=== PATIENT | female | born 1940 | race Caucasian/White ===

== ENCOUNTER 2016-07-01 21:30 | Inpatient (IN) | payer MEDICARE, OTHER ==
[~2016-07-01] VITALS: Ht 162.6 cm; Wt 73.9 kg
[~2016-07-01 21:30] MED LIST: ACTOS 15MG TAB15 MG PO; ASPIRIN 81M81 MG/TA2 PO; CALCIUM 600600 M2 PO; CIPRO 500MG TA500 MG PO; CYMBALTA 60MG60 MG PO; DESYREL 50MG50 MG PO; DETROL LA4 PO; DIABETA1.25 MG PO; FERROUS SULFATE27 MG PO; GLUCOPHAGE500 MG/TAB PO; JANUVIA25 MG PO; LASIX 40MG TABL40 MG PO; LEXAPRO 10MG10 MG PO; LIPITOR 40MG TA40 MG PO; LOPID 600M600 MG/TAB PO; MACROBID 1100 MG/CAP PO; NORCO 325 MG-51 TAB PO; REGLAN 5MG T5 MG/TAB PO; SYNTHROID0.1 MG/TAB PO; WELLBUTRIN SR100 M1 PO; ZESTRIL 5MG5 MG PO
[2016-07-01] MEDS ORDERED: MYRBETR25MG PO (22:39)
[2016-07-01] MEDS ORDERED: VITAMIN D 1001000 IU PO (22:39)
[2016-07-01] MEDS ORDERED: GLUCOTROL 5M5 MG/TAB PO (22:39)
[2016-07-01 22:44] LABS: INFLUENZA B NEGATIVE
[2016-07-01 23:04] LABS: BASO % 0.4 % (0.0-2.0); GRAN # 6.2 (1.4-6.5); GRAN % 77.3 % (42.2-75.2); HEMATOCRIT 37.9 % (37.0-47.0); HEMOGLOBIN 12.5 g/dl (12.5-16.0); LYMPH # 0.5 (1.2-3.4); LYMPH % 6.8 % (20.0-51.0); MEAN CELL VOLUME 91 fl (80.0-100.0); MEAN CORPUSCULAR HEMOGLOBIN 30 pg (27.0-31.0); MEAN CORPUSCULAR HGB CONC 33 g/dl (33.0-37.0); MEAN PLATELET VOLUME 10.9 fl (7.4-10.4); MONO # 1.2 (0.1-0.6); MONO % 15.1 % (1.7-9.3); PLATELET COUNT 176 K/mm3 (130-400); RED BLOOD COUNT 4.19 M/mm3 (4.10-5.30); REDCELL DISTRIBUTION WIDTH-CV 12.6 % (11.5-14.5)
[2016-07-01 23:17] LABS: ADJUSTED CALCIUM 10.1 mg/dL (8.4-10.2); BILIRUBIN,TOTAL 0.8 mg/dL (0.0-1.0); CALCIUM 10.1 mg/dL (8.4-10.2); CREATININE, serum 1.32 mg/dL (0.52-1.25); POTASSIUM 4.6 mmol/L (3.4-5.0); TOTAL PROTEIN 7.1 gm/dL (6.4-8.2)
[2016-07-02 00:29] LABS: PH 5 (5-8); SQUAMOUS EPITHELIAL 0-2 /hpf; URINE APPEARANCE Hazy; URINE BACTERIA Rare /hpf; URINE BILIRUBIN Negative (NEGATIVE); URINE BLOOD 2+ (NEGATIVE); URINE COLOR Yellow; URINE GLUCOSE Negative (NEGATIVE); URINE KETONE Trace (NEGATIVE); URINE RBC 0-2 /hpf; URINE UROBILINOGEN Negative (NEGATIVE); URINE WBC 0-2 /hpf
[2016-07-02 01:32] VITALS: BP 150/72; PULSE 83; TEMP 99.5
[2016-07-02 05:16] VITALS: BP 107/48; PULSE 66; TEMP 98.4
[2016-07-02 07:45] VITALS: BP 130/43; PULSE 70; TEMP 98.3
[2016-07-02 08:37] LABS: BASO % 0.5 % (0.0-2.0); EOS % 0.2 % (0-4.0); GRAN % 63.9 % (42.2-75.2); LYMPH # 1.2 (1.2-3.4); LYMPH % 19.2 % (20.0-51.0); MEAN CELL VOLUME 91 fl (80.0-100.0); MEAN CORPUSCULAR HGB CONC 33 g/dl (33.0-37.0); MEAN PLATELET VOLUME 11.6 fl (7.4-10.4); MONO % 15.7 % (1.7-9.3); PLATELET COUNT 142 K/mm3 (130-400); RED BLOOD COUNT 3.83 M/mm3 (4.10-5.30); REDCELL DISTRIBUTION WIDTH-CV 12.7 % (11.5-14.5); WHITE BLOOD COUNT 6.2 K/mm3 (4.8-10.8)
[2016-07-02 08:54] LABS: HEMATOCRIT 34.9 % (37.0-47.0); HEMOGLOBIN 11.4 g/dl (12.5-16.0); MEAN CORPUSCULAR HEMOGLOBIN 30 pg (27.0-31.0)
[2016-07-02 09:16] LABS: CREATININE, serum 1.37 mg/dL (0.52-1.25); POTASSIUM 3.8 mmol/L (3.4-5.0)
[2016-07-02 11:41] VITALS: BP 116/50; PULSE 83; TEMP 98.9
[2016-07-02 16:53] VITALS: BP 135/56; PULSE 94; TEMP 98
[2016-07-02 20:12] VITALS: BP 147/88; PULSE 81; TEMP 98.9
[2016-07-03] VITALS (7 sets, daily range): BP systolic 103–133; BP diastolic 39–69; PULSE 64–91; TEMP 97.7–99.1
[2016-07-03 10:37] LABS: CALCIUM 8.5 mg/dL (8.4-10.2); CREATININE, serum 1.31 mg/dL (0.52-1.25); POTASSIUM 3.9 mmol/L (3.4-5.0)
[2016-07-04 03:35] VITALS: BP 124/64; PULSE 69; TEMP 97.8
[2016-07-04 08:22] VITALS: BP 114/54; PULSE 81; TEMP 98
[2016-07-04 12:16] VITALS: BP 117/48; PULSE 66; TEMP 98.3
[2016-07-04] MEDS ORDERED: OMNICEF 300MG300 MG PO (12:59)
[2016-07-04] MEDS ORDERED: ZITHROMAX500 M2 PO (13:02)
[2016-07-04] MEDS ORDERED: PROAIR HFA0.09 MG/AC IH (13:05)
[2016-07-04] MEDS ORDERED: FLONASEALLERGY NS (13:09)
[2016-07-04] MEDS ORDERED: PREDNISONE20 MG PO (13:11)
[2016-07-04] MEDS ORDERED: ROBITUSSIN A-C S1 M1 PO (13:12)
[2016-07-04 15:56] VITALS: BP 123/44; PULSE 74; TEMP 98.2
== END 2016-07-04 17:10 | disposition home or self-care (01) | DRG 194 ==
LOC: COL.ER 21:30 → MEDICAL 07-02 00:09
PROVIDERS: Emergency Medicine; Nurse Practitioner Family; Physician Assistant
DX: J18.9 Pneumonia, unspecified organism (principal); N17.9 Acute kidney failure, unspecified; E44.1 Mild protein-calorie malnutrition; I25.10 Atherosclerotic heart disease of native coronary artery without angina pectoris; I10 Essential (primary) hypertension; F17.210 Nicotine dependence, cigarettes, uncomplicated; E11.65 Type 2 diabetes mellitus with hyperglycemia
CPT/HCPCS: 99222-AI; 99231-AI; 99232-AI; 99239; J0456; J0696; J1815; J1885; J7030; J7050; J7512

== ENCOUNTER 2016-07-11 11:04 | Inpatient (IN) | payer MEDICARE, OTHER ==
[~2016-07-11] VITALS: Ht 162.6 cm; Wt 63.4 kg
[~2016-07-11 11:04] MED LIST changes: +FLONASEALLERGY NS; +GLUCOTROL 5M5 MG/TAB PO; +MYRBETR25MG PO; +OMNICEF 300MG300 MG PO; +PREDNISONE20 MG PO; +PROAIR HFA0.09 MG/AC IH; +ROBITUSSIN A-C S1 M1 PO; +VITAMIN D 1001000 IU PO; +ZITHROMAX500 M2 PO
[2016-07-11] MEDS ORDERED: FOSAMAX 70MG TA70 MG PO (11:55)
[2016-07-11 12:07] LABS: ARTERIAL BLD GAS O2 SATURATION 93.5 % (92-100); ARTERIAL BLD GAS TCO2 CT 30.7; ARTERIAL BLOOD GAS BASE EXCESS 5.3 (-2-2); ARTERIAL BLOOD GAS HCO3 29.5 meq/L (22-26); ARTERIAL BLOOD GAS PHT 7.47 C (7.35-7.45); ARTERIAL BLOOD GAS PO2 69.5 mmHg (80-100); ARTERIAL BLOOD GAS PO2T 69.5 (80-100); ARTERIAL BLOOD GAS pH 7.47 (7.35-7.45); OXYHEMOGLOBIN 92.8 %
[2016-07-11] MEDS ORDERED: MULTI VITAMINS1 TAB PO (12:07)
[2016-07-11] MEDS ORDERED: PROBIOTIC FORMU1 CAP PO (12:07)
[2016-07-11] MEDS ORDERED: B-12 100 MCG PO (12:07)
[2016-07-11 12:08] LABS: ATS? YES
[2016-07-11] MEDS ORDERED: OMEGA-31 SGL PO (12:08)
[2016-07-11] MEDS ORDERED: K-DUR 10 MEQ T10 MEQ PO (12:08)
[2016-07-11] MEDS ORDERED: PRINIVIL10 MG PO (12:09)
[2016-07-11 12:10] LABS: HEMATOCRIT 37.7 % (37.0-47.0); HEMOGLOBIN 12.8 g/dl (12.5-16.0); MEAN CELL VOLUME 87 fl (80.0-100.0); MEAN CORPUSCULAR HEMOGLOBIN 30 pg (27.0-31.0); MEAN CORPUSCULAR HGB CONC 34 g/dl (33.0-37.0); MEAN PLATELET VOLUME 10.8 fl (7.4-10.4); PLATELET COUNT 223 K/mm3 (130-400); RED BLOOD COUNT 4.32 M/mm3 (4.10-5.30); REDCELL DISTRIBUTION WIDTH-CV 12.6 % (11.5-14.5); WHITE BLOOD COUNT 9.8 K/mm3 (4.8-10.8)
[2016-07-11 12:15] LABS: INR 1.1 (0.8-3.0); PROTHROMBIN TIME 11.9 SECONDS (9.7-12.8)
[2016-07-11 12:18] LABS: PH 6 (5-8); URINE APPEARANCE Clear; URINE BACTERIA None Seen /hpf; URINE BILIRUBIN Negative (NEGATIVE); URINE BLOOD Negative (NEGATIVE); URINE COLOR Straw; URINE GLUCOSE Negative (NEGATIVE); URINE KETONE Negative (NEGATIVE); URINE RBC 0-2 /hpf; URINE UROBILINOGEN Negative (NEGATIVE)
[2016-07-11 12:18] LABS: ADD PATHOLOGY DIFF REVIEW NO
[2016-07-11 12:28] LABS: NEUTROPHILS 55 % (42.0-75.2); PLATELET ESTIMATE NORMAL (NORMAL); TOTAL CELLS COUNTED 100
[2016-07-11 12:50] LABS: ADJUSTED CALCIUM 11.2 mg/dL (8.4-10.2); ALANINE AMINOTRANSFERASE 42 U/L (9-52); ALBUMIN 4.1 gm/dL (3.5-5.0); ALKALINE PHOSPHATASE 47 U/L (50-136); ANION GAP 13 mmol/L (7-16); BLOOD UREA NITROGEN 14 mg/dL (7-17); CALCIUM 11.3 mg/dL (8.4-10.2); CARBON DIOXIDE 28 mmol/L (22-30); CHLORIDE 98 mmol/L (98-107); CREATININE, serum 1.14 mg/dL (0.52-1.25); GLUCOSE 147 mg/dL (74-106); POTASSIUM 3.6 mmol/L (3.4-5.0); SODIUM 139 mmol/L (137-145); TOTAL PROTEIN 6.8 gm/dL (6.4-8.2)
[2016-07-11 12:54] LABS: C-REACTIVE PROTEIN < 0.5 mg/dL (0.0-0.9)
[2016-07-11 13:00] LABS: B-TYPE NATRIURETIC PEPTIDE 1900 pg/mL (0-125)
[2016-07-11 13:04] LABS: TROPONIN-I 0.098 ng/mL (0.000-0.034)
[2016-07-11 15:32] VITALS: BP 185/53; PULSE 77; TEMP 98.6
[2016-07-11 21:59] VITALS: BP 183/77; PULSE 80; TEMP 99.2
[2016-07-12] VITALS (7 sets, daily range): BP systolic 113–199; BP diastolic 69–84; PULSE 71–83; TEMP 9
[2016-07-13 04:09] VITALS: BP 148/70
[2016-07-13 08:16] VITALS: BP 168/58; PULSE 69; TEMP 98.4
[2016-07-13 11:54] VITALS: BP 180/58; PULSE 68; TEMP 97.8
[2016-07-13 17:07] VITALS: BP 154/62; PULSE 83; TEMP 98.4
[2016-07-13 20:33] VITALS: BP 139/84; PULSE 70; TEMP 98.5
[2016-07-14 00:05] VITALS: BP 154/46; PULSE 60; TEMP 97.7
[2016-07-14 04:25] VITALS: BP 171/51; PULSE 53; TEMP 98.2
[2016-07-14 08:56] VITALS: BP 99/59; PULSE 55; TEMP 98.2
[2016-07-14 09:09] LABS: AMMONIA < 9 umol/L (11-35)
[2016-07-14 09:22] LABS: THYROID STIMULATING HORMONE 0.314 uIU/mL (0.465-4.680)
[2016-07-14 13:25] VITALS: BP 178/53; PULSE 59; TEMP 98.6
[2016-07-14 17:37] VITALS: BP 170/53; PULSE 56; TEMP 98.4
[2016-07-14 19:58] VITALS: BP 157/78; PULSE 61; TEMP 97.5
[2016-07-15 00:37] VITALS: BP 124/58; PULSE 75; TEMP 98.2
[2016-07-15 06:49] VITALS: BP 160/41; PULSE 52
[2016-07-15 09:48] VITALS: BP 164/67; PULSE 58; TEMP 98.2
[2016-07-15 11:27] VITALS: BP 145/51; PULSE 50
[2016-07-15 15:34] VITALS: BP 142/53; PULSE 63
[2016-07-15 17:50] LABS: BASO % 0.1 % (0.0-2.0); GRAN % 88.6 % (42.2-75.2); LYMPH # 0.8 (1.2-3.4); LYMPH % 7.7 % (20.0-51.0); MEAN CELL VOLUME 89 fl (80.0-100.0); MEAN CORPUSCULAR HGB CONC 33 g/dl (33.0-37.0); MEAN PLATELET VOLUME 11.6 fl (7.4-10.4); MONO # 0.3 (0.1-0.6); MONO % 3.2 % (1.7-9.3); PLATELET COUNT 195 K/mm3 (130-400); RED BLOOD COUNT 3.91 M/mm3 (4.10-5.30); WHITE BLOOD COUNT 10.1 K/mm3 (4.8-10.8)
[2016-07-15 17:51] LABS: HEMATOCRIT 34.8 % (37.0-47.0); HEMOGLOBIN 11.4 g/dl (12.5-16.0); MEAN CORPUSCULAR HEMOGLOBIN 29 pg (27.0-31.0)
[2016-07-15 18:00] LABS: CREATININE, serum 1.11 mg/dL (0.52-1.25); POTASSIUM 4.1 mmol/L (3.4-5.0)
[2016-07-15 20:11] VITALS: BP 168/80; PULSE 71; TEMP 98
[2016-07-16] VITALS (7 sets, daily range): BP systolic 145–181; BP diastolic 47–91; PULSE 50–72; TEMP 96.9–98.6
[2016-07-16] MEDS ORDERED: ARICEPT 5MG PO (15:34)
[2016-07-16] MEDS ORDERED: TOPROL XL 50MG50 MG PO (15:35)
[2016-07-16] MEDS ORDERED: SYNTHROID0.05 MG/TA PO (15:36)
[2016-07-17 01:18] VITALS: PULSE 50
[2016-07-17 02:18] VITALS: BP 121/48; PULSE 61; TEMP 97.9
[2016-07-17 06:02] VITALS: BP 151/69; PULSE 61; TEMP 97.8
[2016-07-17 07:54] VITALS: BP 120/52; BP 130/68; PULSE 51; TEMP 97.9
[2016-07-17 08:20] LABS: CALCIUM 9.5 mg/dL (8.4-10.2); CREATININE, serum 1.05 mg/dL (0.52-1.25); POTASSIUM 3.3 mmol/L (3.4-5.0)
[2016-07-17 11:09] LABS: ALBUMIN FRACTION 3.5 g/dL (2.6-4.5); ALPHA 1 FRACTION 0.3 g/dL (0.3-0.5); ALPHA 1 PERCENTAGE 4.1 % (3.4-8.3); ALPHA 2 FRACTION 0.9 g/dL (0.6-1.2); ALPHA 2 PERCENTAGE 13.9 % (8.4-17.5); BETA 1 FRACTION 0.4 g/dL (0.4-0.6); BETA 1 PERCENTAGE 6.5 % (5.4-8.9); BETA 2 FRACTION 0.3 g/dL (0.2-0.5); BETA 2 PERCENTAGE 5.1 % (3.8-7.7); GAMMA FRACTION 0.8 g/dL (0.4-1.7); GAMMA PERCENTAGE 12.4 % (8.1-23.0); SERUM PROTEIN TOTAL 6.1 g/dL (6.0-7.6)
[2016-07-17 11:49] VITALS: BP 140/51; PULSE 52; TEMP 98.4
[2016-07-17] MEDS ORDERED: LOPRESSOR 550 MG/TAB PO (14:15)
[2016-07-17] MEDS ORDERED: KLOR-CON M2020 MEQ PO (14:16)
[2016-07-17] MEDS ORDERED: NOVOLOG FLEX100 U/ML SQ (14:17)
[2016-07-17 19:30] LABS: .COPPER,S 0.99 mcg/mL (())
[2016-07-18] MEDS ORDERED: LOPRESSOR 225 MG/TAB PO (01:44)
[2016-07-19 07:11] LABS: VITAMIN E 10.6 mg/L (())
== END 2016-07-17 15:34 | DRG 70 ==
LOC: COL.ER 11:04 → MEDICAL 13:46
PROVIDERS: Emergency Medicine; Nurse Practitioner Family; Psychiatry & Neurology Neurology
DX: I67.83 Posterior reversible encephalopathy syndrome (principal); I21.4 Non-ST elevation (NSTEMI) myocardial infarction; F01.51 Vascular dementia, unspecified severity, with behavioral disturbance; F05 Delirium due to known physiological condition; R47.01 Aphasia; Z66 Do not resuscitate; I10 Essential (primary) hypertension; E11.9 Type 2 diabetes mellitus without complications; F17.210 Nicotine dependence, cigarettes, uncomplicated; R27.8 Other lack of coordination; R29.810 Facial weakness
CPT/HCPCS: 99222-AI; 99232-AI; 99233-AI; 99239; J0360; J0696; J1815; J7030; J7512

== ENCOUNTER 2016-07-17 15:26 | Inpatient (IN) | payer MEDICARE, OTHER ==
[~2016-07-17] VITALS: Ht 165.1 cm; Wt 62.3 kg
[~2016-07-17 15:26] MED LIST changes: +ARICEPT 5MG PO; +B-12 100 MCG PO; +FOSAMAX 70MG TA70 MG PO; +K-DUR 10 MEQ T10 MEQ PO; +KLOR-CON M2020 MEQ PO; +LOPRESSOR 550 MG/TAB PO; +MULTI VITAMINS1 TAB PO; +NOVOLOG FLEX100 U/ML SQ; +OMEGA-31 SGL PO; +PRINIVIL10 MG PO; +PROBIOTIC FORMU1 CAP PO; +SYNTHROID0.05 MG/TA PO; +TOPROL XL 50MG50 MG PO
[2016-07-17 17:36] VITALS: BP 138/45; PULSE 62; TEMP 97.2
[2016-07-17 18:12] VITALS: BP 138/45; PULSE 62; TEMP 97.2
[2016-07-18] MEDS ORDERED: LOPRESSOR 225 MG/TAB PO (01:44)
[2016-07-18 06:16] VITALS: BP 149/42; PULSE 59; TEMP 97.6
[2016-07-18 16:12] VITALS: BP 112/46; PULSE 57; TEMP 98.2
[2016-07-19 05:29] VITALS: BP 128/53; PULSE 62; TEMP 97.2
[2016-07-19 17:01] VITALS: BP 118/49; PULSE 64; TEMP 97.9
[2016-07-20 03:59] VITALS: BP 123/37; PULSE 56; TEMP 97.1
[2016-07-20 09:12] LABS: CALCIUM 10.3 mg/dL (8.4-10.2); CREATININE, serum 1.24 mg/dL (0.52-1.25); MAGNESIUM 1.4 mg/dL (1.6-2.3); POTASSIUM 4.4 mmol/L (3.4-5.0)
[2016-07-20 15:59] VITALS: BP 125/64; PULSE 66; TEMP 97.2
[2016-07-21 05:18] VITALS: BP 109/58; PULSE 69; TEMP 98.1
[2016-07-21 17:43] VITALS: BP 149/49; PULSE 60; TEMP 98.6
[2016-07-22 05:19] VITALS: BP 123/60; PULSE 62; TEMP 97.9
[2016-07-22 16:13] VITALS: BP 122/43; PULSE 60; TEMP 97.5
[2016-07-23 06:02] VITALS: BP 123/42; PULSE 62; TEMP 97.7
[2016-07-23 17:00] VITALS: BP 115/60; PULSE 53; TEMP 97
[2016-07-24 05:46] VITALS: BP 117/41; PULSE 56; TEMP 97.9
[2016-07-24 16:29] VITALS: BP 102/34; PULSE 59; TEMP 98.1
[2016-07-25 04:21] VITALS: BP 110/54; PULSE 72; TEMP 97.5
[2016-07-25 17:26] VITALS: BP 127/76; PULSE 74; TEMP 97.5
[2016-07-26 05:09] VITALS: BP 134/59; PULSE 73; TEMP 97
[2016-07-26 16:56] VITALS: BP 104/68; PULSE 60; TEMP 97.6
[2016-07-27 04:45] VITALS: BP 115/46; PULSE 73; TEMP 98.5
[2016-07-27 16:19] VITALS: BP 139/41; PULSE 57; TEMP 96.6
[2016-07-28 03:48] VITALS: BP 110/82; PULSE 73; TEMP 97.1
[2016-07-28 17:36] VITALS: BP 136/45; PULSE 60; TEMP 97.7
[2016-07-29 05:15] VITALS: BP 132/42; PULSE 59; TEMP 98
[2016-07-29 18:04] VITALS: BP 107/66; PULSE 63; TEMP 98.7
[2016-07-29 23:00] VITALS: BP 139/65; PULSE 76
[2016-07-30 04:35] VITALS: BP 110/43; PULSE 65; TEMP 98.6
[2016-07-30 16:31] VITALS: BP 116/40; PULSE 58; TEMP 98.3
[2016-07-31 05:50] VITALS: BP 128/47; PULSE 63; TEMP 97.4
[2016-07-31 11:07] VITALS: BP 128/47; PULSE 63; TEMP 97.4
[2016-07-31] MEDS ORDERED: SEROQUEL 2525 MG/TAB PO (15:10)
[2016-07-31] MEDS ORDERED: MAG-OX 400400 MG/TAB PO (15:10)
[2016-07-31] MEDS ORDERED: DULCOLAX S10 MG/SUPP RC (15:11)
[2016-07-31] MEDS ORDERED: COLACE 100100 MG/CAP PO (15:11)
== END 2016-07-31 16:28 | DRG 947 ==
PROVIDERS: Internal Medicine
DX: R53.81 Other malaise (principal); G93.41 Metabolic encephalopathy; F05 Delirium due to known physiological condition; I10 Essential (primary) hypertension; F03.90 Unspecified dementia, unspecified severity, without behavioral disturbance, psychotic disturbance, mood disturbance, and anxiety; E11.9 Type 2 diabetes mellitus without complications; R27.8 Other lack of coordination; R47.02 Dysphasia
CPT/HCPCS: 90791-AI; 99222-AI; 99232-AI; 99233-AI; 99239; J1630; J1815

== ENCOUNTER → 2016-08-02 | Outpatient (REF) ==
[~2016-08-02] MED LIST changes: +BACTRIM DS 8001 TAB PO; +COLACE 100100 MG/CAP PO; +DULCOLAX S10 MG/SUPP RC; +GLUCOPHAGE1000 MG PO; +GLUCOTROL XL2.5 MG PO; +LOPRESSOR 225 MG/TAB PO; +MAG-OX 400400 MG/TAB PO; +PRINIVIL20 MG PO; +SEROQUEL 2525 MG/TAB PO
[2016-08-02 15:17] LABS: PH 5 (5-8); URINE APPEARANCE Hazy; URINE BACTERIA Rare /hpf; URINE BILIRUBIN Negative (NEGATIVE); URINE BLOOD Negative (NEGATIVE); URINE COLOR Yellow; URINE GLUCOSE 2+ (NEGATIVE); URINE KETONE Negative (NEGATIVE); URINE UROBILINOGEN Negative (NEGATIVE); URINE WBC >50 /hpf
== END ==
LOC: ZLAB.STJ 11:30
PROVIDERS: Internal Medicine
DX: Z01.89 Encounter for other specified special examinations (principal)

== ENCOUNTER 2016-08-08 16:45 | Observation (INO) | payer MEDICARE, OTHER ==
[~2016-08-08] VITALS: Ht 165.1 cm; Wt 67.8 kg
[~2016-08-08 16:45] MED LIST changes: -BACTRIM DS 8001 TAB PO; -GLUCOPHAGE1000 MG PO; -GLUCOTROL XL2.5 MG PO; -PRINIVIL20 MG PO
[2016-08-08] MEDS ORDERED: GLUCOPHAGE1000 MG PO (18:02)
[2016-08-08] MEDS ORDERED: SYNTHROID0.05 MG/TA PO (18:09)
[2016-08-08] MEDS ORDERED: PRINIVIL20 MG PO (18:13)
[2016-08-08] MEDS ORDERED: CIPRO 500MG TA500 MG PO (18:14)
[2016-08-08] MEDS ORDERED: BACTRIM DS 8001 TAB PO (18:14)
[2016-08-08] MEDS ORDERED: GLUCOTROL XL2.5 MG PO (18:20)
[2016-08-08 21:37] VITALS: BP 115/54; PULSE 83; TEMP 98.7
[2016-08-08 21:43] VITALS: BP 115/54; PULSE 84; TEMP 98.7
[2016-08-08 23:18] LABS: CREATININE, serum 2.25 mg/dL (0.52-1.25); POTASSIUM 5.6 mmol/L (3.4-5.0)
[2016-08-09] VITALS (7 sets, daily range): BP systolic 84–119; BP diastolic 29–40; PULSE 56–85; TEMP 97.2–98.8
[2016-08-09 06:50] LABS: BASO % 0.4 % (0.0-2.0); EOS # 0.2 (0.0-0.7); EOS % 2.3 % (0-4.0); GRAN # 4.5 (1.4-6.5); GRAN % 55.4 % (42.2-75.2); LYMPH # 2.5 (1.2-3.4); MEAN CELL VOLUME 96 fl (80.0-100.0); MEAN CORPUSCULAR HGB CONC 32 g/dl (33.0-37.0); MEAN PLATELET VOLUME 11.6 fl (7.4-10.4); MONO # 0.9 (0.1-0.6); MONO % 11.5 % (1.7-9.3); PLATELET COUNT 175 K/mm3 (130-400); RED BLOOD COUNT 3.03 M/mm3 (4.10-5.30); REDCELL DISTRIBUTION WIDTH-CV 13.6 % (11.5-14.5); WHITE BLOOD COUNT 8.2 K/mm3 (4.8-10.8)
[2016-08-09 07:00] LABS: CALCIUM 10.1 mg/dL (8.4-10.2); CREATININE, serum 2.15 mg/dL (0.52-1.25); POTASSIUM 5.7 mmol/L (3.4-5.0)
[2016-08-09 07:01] LABS: HEMATOCRIT 29.1 % (37.0-47.0); HEMOGLOBIN 9.2 g/dl (12.5-16.0); MEAN CORPUSCULAR HEMOGLOBIN 30 pg (27.0-31.0)
[2016-08-09 12:50] LABS: PH 6 (5-8); URINE APPEARANCE Clear; URINE BACTERIA Rare /hpf; URINE BILIRUBIN Negative (NEGATIVE); URINE BLOOD Negative (NEGATIVE); URINE COLOR Yellow; URINE GLUCOSE Negative (NEGATIVE); URINE KETONE Negative (NEGATIVE); URINE RBC 0-2 /hpf; URINE UROBILINOGEN Negative (NEGATIVE)
[2016-08-10 01:04] VITALS: BP 113/29; PULSE 60; TEMP 99.2
[2016-08-10 07:53] VITALS: BP 131/48; PULSE 66; TEMP 98.1
[2016-08-10 08:10] LABS: CALCIUM 8.8 mg/dL (8.4-10.2); CREATININE, serum 1.56 mg/dL (0.52-1.25); MAGNESIUM 1.6 mg/dL (1.6-2.3); POTASSIUM 4.5 mmol/L (3.4-5.0)
[2016-08-10] MEDS ORDERED: ZESTRIL 5MG5 MG PO (11:28)
[2016-08-10 11:46] VITALS: BP 131/48; PULSE 66; TEMP 98.1
== END 2016-08-10 12:22 ==
LOC: COL.ER 16:45 → MEDICAL 17:47 → COL.ER 17:47 → MEDICAL 08-10 12:22
PROVIDERS: Emergency Medicine; Family Medicine; Internal Medicine
DX: E87.5 Hyperkalemia (principal); N17.9 Acute kidney failure, unspecified; E11.9 Type 2 diabetes mellitus without complications; Z79.84 Long term (current) use of oral hypoglycemic drugs; N39.0 Urinary tract infection, site not specified; B95.2 Enterococcus as the cause of diseases classified elsewhere; I10 Essential (primary) hypertension; E03.9 Hypothyroidism, unspecified; I25.10 Atherosclerotic heart disease of native coronary artery without angina pectoris; Z79.4 Long term (current) use of insulin; R45.1 Restlessness and agitation; F41.8 Other specified anxiety disorders; Z87.891 Personal history of nicotine dependence
CPT/HCPCS: G0378; J1650; J1815; J7030

== ENCOUNTER → 2016-08-08 | Outpatient (REF) ==
[2016-08-08 12:40] LABS: BASO % 0.5 % (0.0-2.0); EOS # 0.2 (0.0-0.7); EOS % 2.8 % (0-4.0); GRAN # 4.1 (1.4-6.5); GRAN % 51.8 % (42.2-75.2); LYMPH # 2.6 (1.2-3.4); LYMPH % 32.6 % (20.0-51.0); MEAN CELL VOLUME 94 fl (80.0-100.0); MEAN CORPUSCULAR HGB CONC 32 g/dl (33.0-37.0); MEAN PLATELET VOLUME 12.3 fl (7.4-10.4); MONO # 0.9 (0.1-0.6); MONO % 11.9 % (1.7-9.3); PLATELET COUNT 186 K/mm3 (130-400); RED BLOOD COUNT 3.31 M/mm3 (4.10-5.30); REDCELL DISTRIBUTION WIDTH-CV 13.5 % (11.5-14.5); WHITE BLOOD COUNT 7.9 K/mm3 (4.8-10.8)
[2016-08-08 12:42] LABS: HEMATOCRIT 31.2 % (37.0-47.0); HEMOGLOBIN 10.1 g/dl (12.5-16.0); MEAN CORPUSCULAR HEMOGLOBIN 31 pg (27.0-31.0)
[2016-08-08 13:10] LABS: CREATININE, serum 2.15 mg/dL (0.52-1.25)
[2016-08-08 13:20] LABS: POTASSIUM 6.7 mmol/L (3.4-5.0)
[2016-08-08 13:39] LABS: THYROID STIMULATING HORMONE 1.78 uIU/mL (0.465-4.680)
== END ==
LOC: ZLAB.STJ 12:28
PROVIDERS: Internal Medicine
DX: Z01.89 Encounter for other specified special examinations (principal)

== ENCOUNTER → 2016-08-15 | Outpatient (REF) ==
[~2016-08-15] MED LIST changes: +BACTRIM DS 8001 TAB PO; +GLUCOPHAGE1000 MG PO; +GLUCOTROL XL2.5 MG PO; +PRINIVIL20 MG PO
[2016-08-15 10:21] LABS: CALCIUM 8.9 mg/dL (8.4-10.2); CREATININE, serum 1.21 mg/dL (0.52-1.25)
== END ==
LOC: ZLAB.WCH 09:25 → ZLAB.STJ 09:25
PROVIDERS: Internal Medicine
DX: Z01.89 Encounter for other specified special examinations (principal)

== ENCOUNTER → 2016-08-19 | Outpatient (REF) ==
[2016-08-19 09:18] LABS: CALCIUM 9.2 mg/dL (8.4-10.2); CREATININE, serum 1.18 mg/dL (0.52-1.25); POTASSIUM 4.9 mmol/L (3.4-5.0)
== END ==
LOC: ZLAB.STJ 09:01
PROVIDERS: Internal Medicine
DX: Z01.89 Encounter for other specified special examinations (principal)

== ENCOUNTER 2017-03-29 10:41 | Emergency (ER) | payer MEDICARE, OTHER ==
[~2017-03-29] VITALS: Ht 165.1 cm; Wt 71.4 kg
[~2017-03-29 10:41] MED LIST changes: -MYRBETR25MG PO; +MYRBETR50MG PO; +OMEGA-3 FISH1000 MG PO; -OMEGA-31 SGL PO
[2017-03-29 11:32] LABS: COLLECTION METHOD CLEAN CATCH
[2017-03-29 11:39] LABS: PH 6 (5-8); SQUAMOUS EPITHELIAL None Seen /hpf; URINE APPEARANCE Turbid; URINE BACTERIA None Seen /hpf; URINE BILIRUBIN Negative (NEGATIVE); URINE BLOOD 3+ (NEGATIVE); URINE COLOR Blue; URINE GLUCOSE 2+ (NEGATIVE); URINE KETONE Trace (NEGATIVE); URINE LEUKOCYTE ESTERASE Negative (NEGATIVE); URINE PROTEIN(semi-quant) 2+ (NEGATIVE); URINE RBC >50 /hpf; URINE UROBILINOGEN Negative (NEGATIVE); URINE WBC >50 /hpf
[2017-03-29] MEDS ORDERED: NORVASC 5MG5 MG/TAB PO (11:45)
[2017-03-29] MEDS ORDERED: NOVOLOG FLEX100 U/ML SQ (11:48)
[2017-03-29] MEDS ORDERED: BASAGLAR K100 UNIT/1 SQ (11:48)
[2017-03-29] MEDS ORDERED: EFFEXOR XR37.5 MG/CA PO (11:52)
[2017-03-29 12:05] LABS: BASO # 0.1 (0.0-0.2); BASO % 0.6 % (0.0-2.0); EOS # 0.4 (0.0-0.7); EOS % 3.8 % (0-4.0); GRAN % 64.2 % (42.2-75.2); HEMOGLOBIN 11.7 g/dl (12.5-16.0); MEAN CELL VOLUME 95 fl (80.0-100.0); MEAN CORPUSCULAR HEMOGLOBIN 31 pg (27.0-31.0); MEAN CORPUSCULAR HGB CONC 33 g/dl (33.0-37.0); MEAN PLATELET VOLUME 10.6 fl (7.4-10.4); MONO # 0.9 (0.1-0.6); MONO % 10.1 % (1.7-9.3); PLATELET COUNT 263 K/mm3 (130-400); RED BLOOD COUNT 3.79 M/mm3 (4.10-5.30); WHITE BLOOD COUNT 9.3 K/mm3 (4.8-10.8)
[2017-03-29 12:11] LABS: ADJUSTED CALCIUM 9.5 mg/dL (8.4-10.2); ALBUMIN 3.9 gm/dL (3.5-5.0); BILIRUBIN,TOTAL 0.7 mg/dL (0.0-1.0); CALCIUM 9.4 mg/dL (8.4-10.2); CREATININE, serum 1.67 mg/dL (0.52-1.25); TOTAL PROTEIN 7.2 gm/dL (6.4-8.2)
[2017-03-29 12:19] LABS: INR 1.1 (0.8-3.0); PROTHROMBIN TIME 12.8 SECONDS (9.7-12.8)
[2017-03-29] MEDS ORDERED: CIPRO 500MG TA500 MG PO (13:16)
[2017-03-29] MEDS ORDERED: MACROBID 1100 MG/CAP PO (13:46)
[2017-03-29 14:11] VITALS: BP 97/75; PULSE 80; TEMP 98.1
== END 2017-03-29 14:09 | disposition home or self-care (01) ==
LOC: COL.ER 10:41
PROVIDERS: Emergency Medicine
DX: E11.9 Type 2 diabetes mellitus without complications (principal); R31.9 Hematuria, unspecified; Z79.82 Long term (current) use of aspirin; Z79.4 Long term (current) use of insulin

== ENCOUNTER 2017-04-12 16:13 | Inpatient (IN) | payer MEDICARE, OTHER ==
[~2017-04-12] VITALS: Ht 165.1 cm; Wt 76.6 kg
[~2017-04-12 16:13] MED LIST changes: +BASAGLAR K100 UNIT/1 SQ; +EFFEXOR XR37.5 MG/CA PO; +NORVASC 5MG5 MG/TAB PO
[2017-04-12 16:32] VITALS: BP 127/59; PULSE 72
[2017-04-12 17:00] LABS: MEAN CELL VOLUME 98 fl (80.0-100.0); MEAN CORPUSCULAR HGB CONC 31 g/dl (33.0-37.0); MEAN PLATELET VOLUME 10.6 fl (7.4-10.4); PLATELET COUNT 279 K/mm3 (130-400); RED BLOOD COUNT 3.14 M/mm3 (4.10-5.30); REDCELL DISTRIBUTION WIDTH-CV 12.7 % (11.5-14.5)
[2017-04-12 17:07] LABS: ALANINE AMINOTRANSFERASE 37 U/L (9-52); ALBUMIN 4.1 gm/dL (3.5-5.0); ALKALINE PHOSPHATASE 65 U/L (50-136); ANION GAP 10 mmol/L (7-16); AST,SGOT 49 U/L (15-37); BILIRUBIN,TOTAL 0.3 mg/dL (0.0-1.0); BLOOD UREA NITROGEN 21 mg/dL (7-17); CALCIUM 9.4 mg/dL (8.4-10.2); CARBON DIOXIDE 25 mmol/L (22-30); CHLORIDE 104 mmol/L (98-107); CREATININE, serum 1.66 mg/dL (0.52-1.25); GLUCOSE 78 mg/dL (74-106); POTASSIUM 4.2 mmol/L (3.4-5.0); SODIUM 139 mmol/L (137-145); TOTAL PROTEIN 7.2 gm/dL (6.4-8.2)
[2017-04-12 17:09] LABS: C-REACTIVE PROTEIN < 0.5 mg/dL (0.0-0.9)
[2017-04-12 17:13] LABS: HEMATOCRIT 30.9 % (37.0-47.0); HEMOGLOBIN 9.7 g/dl (12.5-16.0); MEAN CORPUSCULAR HEMOGLOBIN 31 pg (27.0-31.0)
[2017-04-12 17:20] LABS: BAND 2 % (0-10); EOSINOPHIL 2 % (0-4); HYPOCHROMIA 2+; LYMPHOCYTE 32 % (20.0-51.0); NEUTROPHILS 56 % (42.0-75.2); PLATELET ESTIMATE NORMAL (NORMAL)
[2017-04-12 18:28] LABS: COLLECTION METHOD CLEAN CATCH
[2017-04-12 18:44] LABS: MUCOUS Present /lpf; PH 6 (5-8); URINE APPEARANCE Hazy; URINE BACTERIA None Seen /hpf; URINE BILIRUBIN Negative (NEGATIVE); URINE BLOOD 1+ (NEGATIVE); URINE COLOR Yellow; URINE GLUCOSE Negative (NEGATIVE); URINE KETONE Negative (NEGATIVE); URINE LEUKOCYTE ESTERASE 3+ (NEGATIVE); URINE NITRATE Negative (NEGATIVE); URINE PROTEIN(semi-quant) 1+ (NEGATIVE); URINE UROBILINOGEN Negative (NEGATIVE)
[2017-04-12 22:18] VITALS: BP 130/59; PULSE 76; TEMP 97.9
[2017-04-13] VITALS: BP 129/50; PULSE 73; TEMP 98.1
[2017-04-13 04:00] VITALS: BP 126/46; PULSE 72; TEMP 98.6
[2017-04-13 07:47] LABS: BASO # 0.1 (0.0-0.2); BASO % 0.5 % (0.0-2.0); EOS # 0.3 (0.0-0.7); EOS % 3.1 % (0-4.0); GRAN # 5.1 (1.4-6.5); GRAN % 54.6 % (42.2-75.2); LYMPH % 32.1 % (20.0-51.0); MEAN CELL VOLUME 99 fl (80.0-100.0); MEAN CORPUSCULAR HGB CONC 31 g/dl (33.0-37.0); MEAN PLATELET VOLUME 11.1 fl (7.4-10.4); MONO # 0.9 (0.1-0.6); MONO % 9.5 % (1.7-9.3); PLATELET COUNT 216 K/mm3 (130-400); RED BLOOD COUNT 2.88 M/mm3 (4.10-5.30); REDCELL DISTRIBUTION WIDTH-CV 12.6 % (11.5-14.5)
[2017-04-13 07:54] LABS: HEMATOCRIT 28.5 % (37.0-47.0); HEMOGLOBIN 8.8 g/dl (12.5-16.0); MEAN CORPUSCULAR HEMOGLOBIN 31 pg (27.0-31.0)
[2017-04-13 08:00] LABS: ANION GAP 8 mmol/L (7-16); BLOOD UREA NITROGEN 17 mg/dL (7-17); CALCIUM 8.2 mg/dL (8.4-10.2); CARBON DIOXIDE 23 mmol/L (22-30); CHLORIDE 107 mmol/L (98-107); CREATININE, serum 1.42 mg/dL (0.52-1.25); GLUCOSE 130 mg/dL (74-106); MAGNESIUM 2.1 mg/dL (1.6-2.3); POTASSIUM 4.3 mmol/L (3.4-5.0); SODIUM 137 mmol/L (137-145)
[2017-04-13 08:07] LABS: TROPONIN-I 6 HR POST INITIAL < 0.012 ng/mL (0.000-0.034)
[2017-04-13 09:40] VITALS: BP 116/32; PULSE 63; TEMP 98.8
[2017-04-13 09:41] VITALS: BP 96/40; PULSE 76
[2017-04-13 09:43] VITALS: BP 110/73; PULSE 79
[2017-04-13 14:01] VITALS: BP 107/50; PULSE 67; TEMP 98.2
== END 2017-04-13 16:12 | disposition home or self-care (01) | DRG 690 ==
LOC: COL.ER 16:13 → JCC 19:03
PROVIDERS: Emergency Medicine; Nurse Practitioner
DX: N39.0 Urinary tract infection, site not specified (principal); E11.9 Type 2 diabetes mellitus without complications; E78.5 Hyperlipidemia, unspecified; F03.90 Unspecified dementia, unspecified severity, without behavioral disturbance, psychotic disturbance, mood disturbance, and anxiety; E03.9 Hypothyroidism, unspecified; R42 Dizziness and giddiness; N28.9 Disorder of kidney and ureter, unspecified
CPT/HCPCS: 99222-AI; 99239; J0696; J1644; J1815; J2060; J2405; J7030

== ENCOUNTER → 2017-09-09 | Outpatient (CLI) | payer MEDICARE, OTHER | LOC: COL.RAD 13:00 | DX: R91.8 Other nonspecific abnormal finding of lung field (principal) ==

== ENCOUNTER → 2023-06-04 | Outpatient (REF) | payer MEDICARE, OTHER ==
[2023-06-04 11:52] LABS: BASO # 0.1 K/mm3 (0.0-0.2); BASO % 0.8 % (0.0-2.0); EOS # 0.6 K/mm3 (0.0-0.7); EOS % 6.1 % (0.0-4.0); GRAN # 5.2 K/mm3 (1.4-6.5); GRAN % 57.4 % (42.2-75.2); HEMATOCRIT 38.5 % (37.0-47.0); HEMOGLOBIN 12.4 g/dl (12.5-16.0); LYMPH # 2.3 K/mm3 (1.2-3.4); MEAN CELL VOLUME 95 fl (80.0-100.0); MEAN CORPUSCULAR HEMOGLOBIN 31 pg (27-31); MEAN CORPUSCULAR HGB CONC 32 g/dl (33.0-37.0); MEAN PLATELET VOLUME 12.4 fl (7.4-10.4); MONO % 10.5 % (1.7-9.3); PLATELET COUNT 245 K/mm3 (130-400); RED BLOOD COUNT 4.06 M/mm3 (4.10-5.30); REDCELL DISTRIBUTION WIDTH-CV 12.3 % (11.5-14.5)
[2023-06-04 13:01] LABS: CALCIUM 9.9 mg/dL (8.4-10.2); CREATININE, serum 1.67 mg/dL (0.57-1.11); POTASSIUM 4.6 mmol/L (3.5-4.5)
[2023-06-04 13:45] LABS: TSH w REFLEX 1.464 uIU/mL (0.350-4.940)
== END ==
LOC: ZCOL.LAB 10:22
PROVIDERS: Internal Medicine
DX: E03.9 Hypothyroidism, unspecified (principal); E11.22 Type 2 diabetes mellitus with diabetic chronic kidney disease; N18.4 Chronic kidney disease, stage 4 (severe); D63.1 Anemia in chronic kidney disease; E11.21 Type 2 diabetes mellitus with diabetic nephropathy; D51.9 Vitamin B12 deficiency anemia, unspecified

== ENCOUNTER → 2023-06-21 | Outpatient (CLI) | payer MEDICARE, OTHER ==
[2023-06-21 12:19] LABS: URINE APPEARANCE TURBID (CLEAR/HAZY); URINE BLOOD TRACE (NEGATIVE); URINE COLOR YELLOW (YELLOW); URINE GLUCOSE NEGATIVE (NEGATIVE); URINE KETONE NEGATIVE (NEGATIVE); URINE NITRATE NEGATIVE (NEGATIVE); URINE PROTEIN(semi-quant) 3+ (NEGATIVE)
[2023-06-21 12:53] LABS: COLLECTION METHOD CLEAN CATCH; MUCOUS PRESENT (NOT PRESENT); URINE BACTERIA MANY /hpf (NONE SEEN); URINE WBC 20-50 /hpf (0-2)
== END ==
LOC: ZCOL.LAB 11:23
PROVIDERS: Internal Medicine
DX: R45.1 Restlessness and agitation (principal)

== ENCOUNTER → 2023-10-07 | Outpatient (CLI) | payer MEDICARE, OTHER ==
[2023-10-07 12:40] LABS: ALBUMIN 3.3 g/dL (3.4-4.8); BILIRUBIN,TOTAL 0.5 mg/dL (0.2-1.2); CALCIUM 9.2 mg/dL (8.4-10.2); CREATININE, serum 1.56 mg/dL (0.57-1.11); POTASSIUM 4.7 mEq/L (3.5-4.5); TOTAL PROTEIN 6.3 g/dl (6.2-8.1)
[2023-10-07 12:46] LABS: BASO # 0.1 K/mm3 (0.0-0.2); BASO % 0.6 % (0.0-2.0); EOS # 0.5 K/mm3 (0.0-0.7); EOS % 5.1 % (0.0-4.0); GRAN # 6.1 K/mm3 (1.4-6.5); GRAN % 65.2 % (42.2-75.2); HEMATOCRIT 37.1 % (37.0-47.0); HEMOGLOBIN 12.1 g/dl (12.5-16.0); LYMPH # 1.9 K/mm3 (1.2-3.4); LYMPH % 19.7 % (20.0-51.0); MEAN CELL VOLUME 91 fl (80.0-100.0); MEAN CORPUSCULAR HEMOGLOBIN 30 pg (27-31); MEAN CORPUSCULAR HGB CONC 33 g/dl (33.0-37.0); MEAN PLATELET VOLUME 12.2 fl (7.4-10.4); MONO # 0.9 K/mm3 (0.1-0.6); MONO % 9.1 % (1.7-9.3); PLATELET COUNT 258 K/mm3 (130-400); RED BLOOD COUNT 4.08 M/mm3 (4.10-5.30); REDCELL DISTRIBUTION WIDTH-CV 12.3 % (11.5-14.5)
== END ==
LOC: ZCOL.LAB 10:48
PROVIDERS: Internal Medicine
DX: K76.89 Other specified diseases of liver (principal); E11.21 Type 2 diabetes mellitus with diabetic nephropathy